=== PATIENT | male | born 1970 ===

== ENCOUNTER → 2018-10-18 21:37 | Outpatient (REF) | payer OTHER, SELFPAY ==
[2018-10-19 01:23] LABS: Free T3, Triiodothyronine Free 2.82 pg/mL (2.77-5.27)
[2018-10-20 19:29] LABS: Sex Hormone Binding Globulin 38 nmol/L (10-50)
[2018-10-23 13:22] LABS: Triiodothyronine T3 Reverse 11 ng/dL (8-25)
[2018-10-23 18:45] LABS: Testosterone Total 453 ng/dL (250-1100)
== END ==
LOC: LAB 21:37
PROVIDERS: Visit Provider Naturopath
DX: E29.1 Testicular hypofunction (principal); R53.82 Chronic fatigue, unspecified
CPT/HCPCS: 36415; 84270; 84402; 84403; 84439; 84443; 84481; 84482